=== PATIENT | female | born 1970 | race Caucasian/White ===

== ENCOUNTER 2017-05-04 03:26 | Emergency (ER) | payer OTHER ==
[~2017-05-04] VITALS: Ht 157.5 cm; Wt 86.0 kg
[~2017-05-04 03:26] MED LIST: DIPH25CA6 PO; ESCI20TA PO; ESOM40CA PO; FENTANYL TOP; INSU100C SC; LABE100T3 PO; NITR-52 PO; NPH,100C2 SC; ONDA4TAB8 PO; OXYC5TAB PO; POLY17PO PO; PREN1TAB49 PO; ZOLP5TAB PO
[2017-05-04 03:40] VITALS: Ht 157.5 cm; Wt 86.0 kg
[2017-05-04 03:43] LABS: URINE BLOOD (Dip) POC Trace-intact (NEGATIVE)
[2017-05-04 03:45] VITALS: BP 151/90; PULSE 105; RESP 20; TEMP 97.9
[2017-05-04] MEDS ORDERED: morphine 4 MG/ML VIAL IV STA (03:50)
[2017-05-04] MEDS ORDERED: ONDANSETRON 4 MG INJ IV STA (03:50)
[2017-05-04] MEDS ORDERED: SOD CHLORIDE 0.9% 1,000 ML IV STA (03:50)
[2017-05-04 04:20] LABS: BASOPHIL # 0.1 10^3/ul (0.0-0.1); BASOPHILS % 0.7 % (0.0-2.0); EOSINOPHILS # 0.2 10^3/ul (0.0-0.5); EOSINOPHILS % 1.5 % (0.0-7.0); HEMATOCRIT 41.4 % (37.0-47.0); HEMOGLOBIN 13.2 g/dl (12.0-16.0); LYMPHOCYTES # 2.2 10^3/ul (0.8-2.9); LYMPHOCYTES % 19.9 % (15.0-51.0); MEAN CORPUSCULAR HEMOGLOBIN 24.2 pg (29.0-33.0); MEAN CORPUSCULAR HGB CONC 31.9 g/dl (32.0-37.0); MONOCYTE # 0.8 10^3/ul (0.3-0.9); MONOCYTES % 7.7 % (0.0-11.0); NEUTROPHIL # 7.6 10^3/ul (1.6-7.5); NEUTROPHILS % 69.7 % (39.0-77.0); PLATELET COUNT 309 10^3/UL (140-415); RED BLOOD COUNT 5.45 10^6/ul (4.20-5.40); RED CELL DISTRIBUTION WIDTH 14.4 % (11.5-14.5)
[2017-05-04 04:24] LABS: ADD UMIC NO; UR ASCORBIC ACID NEGATIVE (NEGATIVE); UR BILIRUBIN (Dip) NEGATIVE (NEGATIVE); UR BLOOD (Dip) NEGATIVE (NEGATIVE); UR CLARITY CLEAR (CLEAR); UR COLOR YELLOW (YELLOW); UR GLUCOSE (Dip) 3+ mg/dL (NEGATIVE); UR KETONES (Dip) 1+ mg/dL (NEGATIVE); UR LEUKOCYTE ESTERASE (Dip) NEGATIVE Leu/ul (NEGATIVE); UR NITRITE (Dip) NEGATIVE (NEGATIVE); UR SPECIFIC GRAVITY (Dip) 1.041 (1.003-1.030); UR TOTAL PROTEIN (Dip) NEGATIVE (NEGATIVE); UR UROBILINOGEN (Dip) NEGATIVE (NEGATIVE)
[2017-05-04] MEDS ORDERED: LACTATED RINGER'S 1,000 ML IV ONE (04:30)
[2017-05-04] MEDS ORDERED: KETOROLAC 15 MG INJ IV STA (04:31)
--- NOTE | 2017-05-04 04:34 | ERD ---
ER Documentation Chief Complaint Chief Complaint lower mid abd pain radiates to right and left since 1999, left arm pain HPI 47-year-old woman here for diffuse abdominal pain and cramping associated with nausea beginning this afternoon and keeping her awake at night. She states the pain is nonexertional nonradiating and denies previous episodes. Patient denies ingestion of poorly prepared or stored foods. She denies melena or blood per rectum, no fevers or chills, no dysuria, no chest pain or shortness of breath. Patient used NSAIDs at home without relief. Patient denies prior history of liver problems, denies weight loss. ROS All systems reviewed and are negative except as per history of present illness. Medications Home Meds Active Scripts Famotidine* (Famotidine*) 40 Mg Tablet, 40 MG PO HS, #30 TAB Prov:ANNE LANTIGUA MD 05/04/17 Mag Hydrox/Al Hydrox/Simeth (Maalox Advanced Suspension) 355 Ml Oral.susp, 2 TSP PO TID, #24 OZ Prov:ANNE LANTIGUA MD 05/04/17 Oxycodone HCl/Acetaminophen (Percocet 5-325 mg Tablet) 1 Each Tablet, 1 EACH PO TID for PAIN, #12 TAB Prov:ANNE LANTIGUA MD 05/04/17 Reported Medications Escitalopram Oxalate* (Lexapro*) 20 Mg Tablet, 20 MG PO DAILY 11/09/11 Ondansetron Hcl* (Zofran*) 4 Mg Tablet, 4 MG PO BID PRN 11/09/11 Labetalol Hcl* (Normodyne*) 100 Mg Tablet, 20 MG PO BID 11/09/11 Zolpidem Tartrate* (Ambien*) 5 Mg Tablet, 5 MG PO Q HS 11/09/11 Vits W-Ca,Fe,Fa(<1MG) () 1 Tab Tablet, 1 TAB PO DAILY 11/09/11 Polyethylene Glycol (Miralax) 17 Gm/Pkt Liq, 17 GM PO DAILY 11/09/11 Oxycodone Hcl* (IR) (Oxycodone Hcl*) 15 Mg Tab, 15 MG PO FQ 2 HRS PRN 11/09/11 Nitrofurantoin/Nitrofuran Mac (Macrobid 100 Mg Capsule) 100 Mg Capsule, 100 MG PO BID 11/09/11 Nph, Human Insulin Isophane (Novolin N) 100 U/Ml Cartridge, 24 UNITS SC NIGHTLY 11/09/11 Nph, Human Insulin Isophane (Novolin N) 100 U/Ml Cartridge, 22 UNITS SC W/ BF 11/09/11 Insulin Lispro (Humalog) 100 U/Ml Cartridge, 8 UNITS SC BEFORE DINNER 11/09/11 Insulin Lispro (Humalog) 100 U/Ml Cartridge, 10 UNITS SC W/ BF 11/09/11 [Fentanyl] No Conflict Check, 75 MCG TOP Q 72 HRS 11/09/11 Esomeprazole Mag Trihydrate (Nexium) 40 Mg Capsule.dr, 40 MG PO AC MEALS 11/09/11 Diphenhydramine Hcl (Benadryl) 25 Mg Cap, 25 MG PO Q 6 HRS PRN 11/09/11 Allergies Allergies: Coded Allergies: ketorolac (Verified Allergy, Severe, "anaphylaxis", 05/04/17) metoclopramide (Verified Allergy, Mild, ANAPHYLACTIC SHOCK, 04/03/09) prochlorperazine (Verified Allergy, Mild, ANAPHYLACTIC SHOCK, 04/03/09) promethazine (Verified Allergy, Mild, ANAPHYLACTIC SHOCK, 04/03/09) tetracycline (Verified Allergy, Mild, SCALING, 04/03/09) codeine (Verified Adverse Reaction, Mild, NAUSEA, 11/09/11) Uncoded Allergies: LATEX (Allergy, Mild, RASH, 04/03/09) PMhx/Soc Obesity, hypertension, diabetes mellitus History of Surgery: Yes (ABD SURGERY) Anesthesia Reaction: No Hx Neurological Disorder: No Hx Respiratory Disorders: No Hx Cardiac Disorders: Yes (HTN) Hx Psychiatric Problems: Yes (DEPRESSION) Hx Miscellaneous Medical Probl: No Hx Alcohol Use: No Hx Substance Use: No Hx Tobacco Use: No FmHx Family History: No diabetes Physical Exam Vitals Vital Signs Date Time Temp Pulse Resp B/P Pulse Ox O2 Delivery O2 Flow Rate FiO2 05/04/17 03:45 97.9 105 20 151/90 98 Room Air 05/04/17 03:40 97.9 97 20 151/90 97 Physical Exam GENERAL: Well-developed, well-nourished, well-hydrated, in no apparent distress , looks nontoxic in appearance HEENT: Moist mucous membranes, pink conjunctiva, no cervical spine tenderness or step-off deformities, no goiter, no jaundice or icterus, extraocular movements intact without pain. No submandibular induration, and no pharyngeal erythema NEURO: Alert and oriented 3, cranial nerves II through XII intact bilaterally, pupils equal round reactive to light, no focal deficits or facial asymmetry, sensation intact distally Strength 5/5 in upper and lower extremities bilaterally CARDIAC: Regular rate and rhythm, no murmurs rubs or gallops LUNGS: Clear bilaterally no wheezing crackles or stridor ABDOMEN: Soft nontender, no guarding, no rigidity, no rebound, no psoas sign no obturator sign. Normoactive bowel sounds SKIN: Warm and dry to touch, no abrasions, contusions, or hematomas, no lacerations, no ecchymosis, no target lesions, and without ulcers EXTREMITIES: No clubbing cyanosis or edema, calves are bilaterally symmetrical, no Homans sign, no popliteal cord sign. Distal pulses equal and bilateral PSYCH: Normal affect without agitation or irritability Result Diagram: 05/04/17 0400 05/04/17 0400 Results 24 hrs Laboratory Tests Test 05/04/17 03:42 05/04/17 03:46 05/04/17 04:00 Bedside Urine pH (LAB) 5.5 Bedside Urine Protein (LAB) Negative Bedside Urine Glucose (UA) 0.50% Bedside Urine Ketones (LAB) 1+ Bedside Urine Blood Trace-intact Bedside Urine Nitrite (LAB) Negative Bedside Urine Leukocyte Esterase (L Negative Bedside Glucose 297mg/dL White Blood Count 11.010^3/ul Red Blood Count 5.4510^6/ul Hemoglobin 13.2g/dl Hematocrit 41.4% Mean Corpuscular Volume 76.0fl Mean Corpuscular Hemoglobin 24.2pg Mean Corpuscular Hemoglobin Concent 31.9g/dl Red Cell Distribution Width 14.4% Platelet Count 83806^3/UL Mean Platelet Volume 10.0fl Neutrophils % 69.7% Lymphocytes % 19.9% Monocytes % 7.7% Eosinophils % 1.5% Basophils % 0.7% Nucleated Red Blood Cells % 0.0/100WBC Neutrophils # 7.610^3/ul Lymphocytes # 2.210^3/ul Monocytes # 0.810^3/ul Eosinophils # 0.210^3/ul Basophils # 0.110^3/ul Nucleated Red Blood Cells # 0.010^3/ul Prothrombin Time 12.1Sec Prothrombin Time Ratio 0.9 INR International Normalized Ratio 0.90 Urine Color YELLOW Urine Clarity CLEAR Urine pH 5.0 Urine Specific Champion 1.041 Urine Ketones 1+mg/dL Urine Nitrite NEGATIVEmg/dL Urine Bilirubin NEGATIVEmg/dL Urine Urobilinogen NEGATIVEmg/dL Urine Leukocyte Esterase NEGATIVELeu/ul Urine Hemoglobin NEGATIVEmg/dL Urine Glucose 3+mg/dL Urine Total Protein NEGATIVEmg/dl Sodium Level 138mmol/L Potassium Level 4.1mmol/L Chloride Level 101mmol/L Carbon Dioxide Level 27mmol/L Anion Gap 14 Blood Urea Nitrogen 15mg/dl Creatinine 0.57mg/dl Glucose Level 299mg/dl Calcium Level 8.5mg/dl Total Bilirubin 0.3mg/dl Direct Bilirubin 0.00mg/dl Indirect Bilirubin 0.3mg/dl Aspartate Amino Transf (AST/SGOT) 16IU/L Alanine Aminotransferase (ALT/SGPT) 32IU/L Alkaline Phosphatase 90IU/L Total Protein 6.5g/dl Albumin 3.5g/dl Globulin 3.00g/dl Albumin/Globulin Ratio 1.16 Lipase 102U/L Current Medications Medications (Trade) Dose Ordered Sig/Louisa Route PRN Reason Start Time Stop Time Status Last Admin Dose Admin Sodium Chloride (NS) 1,000 ml @ 1,000 mls/hr Q1H STAT IV 05/04/17 03:50 05/04/17 04:21 DC Morphine Sulfate (morphine) 4 mg ONCE STAT IV 05/04/17 03:50 05/04/17 03:52 DC 05/04/17 04:00 Ondansetron HCl 4 mg 4 mg ONCE STAT IV 05/04/17 03:50 05/04/17 03:52 DC 05/04/17 04:00 Lactated Ringer's (Lr) 1,000 ml @ 1,000 mls/hr Q1H ONCE IV 05/04/17 04:30 05/04/17 05:27 DC 05/04/17 04:30 Ketorolac Tromethamine (Toradol) 15 mg ONCE STAT IV 05/04/17 04:31 05/04/17 04:32 DC Hydromorphone HCl (Dilaudid) 1 mg ONCE STAT IV 05/04/17 04:35 05/04/17 04:36 DC 05/04/17 04:37 Procedures/MDM IV line was established patient was placed on spin tank tender rhythm strip revealed a sinus rhythm at about 80 bpm with upright P and T waves. Patient was afebrile I administered 1 L LR IV 1, morphine 4 mg IV, Zofran 4 mg IV. Continued cramping I administered hydromorphone 1 mg IV 1. CBC and electrolytes were unremarkable, liver function tests were normal, troponin was negative. Urine analysis negative for infection CT scan of the abdomen and pelvis was performed, given the patient's symptoms. Revealed a hepatic mass and the punctate nonobstructing left urinary calculus, there was also a uterine leiomyoma. I do not suspect any of these incidental findings are contributing to the patient's crampy diffuse abdominal pain although the hepatic mass is concerning and results were provided to the patient. I recommended admission for further workup although patient states her pain improved and she would like to follow-up with her PMD to manage this new hepatic mass. MRI was specifically recommended and I informed her about that fact and she assured me she would tell her PMD about today's CT scan findings. She preferred outpatient management and did not want to be admitted into the hospital. Differential diagnoses considered, included but not limited to acute coronary syndrome, pulmonary embolism, aortic dissection, abdominal aortic aneurysm, sepsis, stroke, meningitis, encephalitis, pneumonia, appendicitis, cholecystitis , bowel obstruction, pyelonephritis, nephrolithiasis, cystitis, as well as metabolic, hematologic, and electrolyte abnormalities. As well as abscess, cellulitis, fractures, and dislocations. Patient feels much better at this time, and vital signs are normal, symptoms have improved. I did give strict instructions to return to the ED if symptoms continue or worsen, patient will otherwise follow-up with primary care physician. Patient understood instructions and agreed to plan. Disclaimer: Inadvertent spelling and grammatical errors are likely due to EHR/ dictation software use and do not reflect on the overall quality of patient care. Also, please note that the electronic time recorded on this note does not necessarily reflect the actual time of the patient encounter. Departure Diagnosis: Primary Impression: Abdominal pain Abdominal location: generalized Qualified Code: R10.84 - Generalized abdominal pain Additional Impressions: Liver mass Uterine leiomyoma Uterine leiomyoma location: intramural Qualified Code: D25.1 - Intramural leiomyoma of uterus Ureterolithiasis Condition: ANNE Mace MD May 04, 2017 04:34
[2017-05-04] MEDS ORDERED: HYDROmorphONE 1 MG/ML SYG IV STA (04:35)
[2017-05-04 04:42] LABS: ALBUMIN 3.5 g/dl (3.3-4.9); ALBUMIN/GLOBULIN RATIO 1.16; BILIRUBIN,INDIRECT 0.3 mg/dl (0-1.1); BILIRUBIN,TOTAL 0.3 mg/dl (0.2-1.3); CALCIUM 8.5 mg/dl (8.4-10.2); CREATININE 0.57 mg/dl (0.44-1.00); POTASSIUM 4.1 mmol/L (3.5-5.1); TOTAL PROTEIN 6.5 g/dl (6.1-8.1)
[2017-05-04 04:43] LABS: INR 0.9; PROTIME 12.1 Sec (12.2-14.2); PT RATIO 0.9
--- NOTE | 2017-05-04 04:44 | RADRPT ---
PROCEDURE: CT of the abdomen and pelvis without contrast CLINICAL INDICATION: Abdominal pain TECHNIQUE: Spiral CT images through the abdomen and pelvis without the use of contrast. The admin istered radiation dose is CTDI 22.08 mGy and DLP 1305.41 mGy*cm. Coronal and sagittal reformatted i mages were submitted. One or more of the following dose reduction techniques were used: automated e xposure control, adjustment of the mA and/or kV according to patient size, or use of iterative recon struction technique. DICOM images are available. COMPARISON: None FINDINGS: Lack of oral and intravenous contrast somewhat limits evaluation. The lung bases are clear. No pl eural effusion is seen.. The liver is enlarged with a heterogeneous mass in the right hepatic lobe inferiorly measuring 4 x 3 x 4.5 cm. The spleen is normal in size and attenuation. There is mild perihepatic and perisplenic f ree fluid. The adrenal glands and pancreas are normal. The gallbladder is absent. No biliary ductal dilatation is seen. The kidneys are normal in size and contour. There is an 8 mm calculus in the low er pole of the left kidney. No hydronephrosis is seen. The aorta is normal in caliber. Multiple flu id-filled loops of large and small bowel are seen.. There is no evidence for bowel obstruction, pilo e air, or abscess. The appendix is normal in appearance. the sigmoid colon and rectum are unremark able. The uterus is anteverted. There is a lobulated mass anterior superior to the uterus measuring 8.7 x 7.3 x 8.5 cm. There is moderate pelvic free fluid. Multiple clips are seen in the pelvis. The bladder is decompressed. The osseous structures are unremarkable.. IMPRESSION: Nonobstructing left renal calculus. 4.5 cm heterogeneous mass in the inferior right hepatic lobe. Contrast enhanced CT or MRI is recomme nded. 8.5 cm lobulated mass in the pelvis which may represent an exophytic uterine leiomyoma. Ultrasound i s recommended. Mild ascites. RPTAT: HCNS Physician Greg Date Time Electronically viewed and signed by Physician Greg on 05/04/2017 04:44 CS/
[2017-05-04] MEDS ORDERED: MAG355OR14 PO (05:13)
[2017-05-04] MEDS ORDERED: FAMO40TA52 PO (05:13)
[2017-05-04] MEDS ORDERED: OXYC-279 PO (05:13)
== END 2017-05-04 05:26 | disposition home or self-care (01) ==
LOC: E/R 03:26
DX: R16.0 Hepatomegaly, not elsewhere classified (principal); D25.1 Intramural leiomyoma of uterus; N20.1 Calculus of ureter; I10 Essential (primary) hypertension; E11.9 Type 2 diabetes mellitus without complications; E66.9 Obesity, unspecified; Z68.34 Body mass index [BMI] 34.0-34.9, adult; Z79.4 Long term (current) use of insulin
CPT/HCPCS: 36415; 74176; 80053; 81003; 82962; 83690; 85025; 85610; 96374; 96375; J1170; J1885; J2270; J2405; J7120; Z7502; J7030